=== PATIENT | female | born 1940 | race Two or more races ===

== ENCOUNTER 2019-01-28 01:25 | Emergency (ER) | payer MEDICARE, OTHER ==
[~2019-01-28] VITALS: Ht 167.6 cm; Wt 81.6 kg
--- NOTE | 2019-01-28 01:20 | NUR ---
ED Nurse Note: Patient brought in by ambulance with complaints of increased chronic pain of the left knee with radiation to the entire leg.
--- NOTE | 2019-01-28 01:29 | Emergency Room Report ---
History of Present Illness General Chief Complaint: Lower Extremity Injury Source: Patient Present Illness HPI This 78-year-old female with a history of degenerative disease, severe arthritis in her left knee that will need a knee replacement per her orthopedic doctor. She also get frequent cortisone injection and fluid aspiration. She presents with chief complaint of left knee pain. There is no trauma. She woke up with this pain. Pain is spasm and radiating upward and downward. Pain is 12 out of 10. Unable to ambulate. No nausea no vomiting. No fever chills. No swelling or redness. Unable to ablate so she called 911. Her Com[employer] which did not help. Allergies: Coded Allergies: SULFAMETHOXAZOLE (Verified Allergy, Unknown, 01/28/19) TRIMETHOPRIM (Verified Allergy, Unknown, 01/28/19) Patient History Past Medical History: see triage record, old chart reviewed Past Surgical History: other Pertinent Family History: none Social History: Denies: smoking Now: No Immunizations: other Reviewed Nursing Documentation: PMH: Agreed; PSxH: Agreed Nursing Documentation-PMH Hx Cardiac Problems: Yes - fybromyalgia Review of Systems Eye: Denies: eye pain, blurred vision ENT: Denies: ear pain, nose congestion, throat swelling Respiratory: Denies: cough, shortness of breath Cardiovascular: Denies: chest pain, palpitations Gastrointestinal: Denies: abdominal pain, diarrhea, nausea, vomiting Musculoskeletal: Reports: joint pain; Denies: back pain Skin: Denies: rash Neurological: Denies: headache, numbness Endocrine: Denies: increased thirst, increased urine Hematologic/Lymphatic: Denies: easy bruising All Other Systems: negative except mentioned in HPI Physical Exam Vital Signs Date Time Temp Pulse Resp B/P (MAP) Pulse Ox O2 Delivery O2 Flow Rate FiO2 01/28/19 00:59 98.2 20 118/57 (77) Nasal Cannula Vitals normal Sp02 EP Interpretation: reviewed, normal General Appearance: well appearing, no apparent distress, alert, obese Head: normocephalic, atraumatic Eyes: bilateral eye PERRL, bilateral eye EOMI ENT: hearing grossly normal, normal pharynx Neck: full range of motion, supple, no meningismus Respiratory: chest non-tender, lungs clear, normal breath sounds Cardiovascular #1: regular rate, rhythm, no murmur Gastrointestinal: normal bowel sounds, non tender, no mass, no organomegaly, no bruit, non-distended Musculoskeletal: back normal, other - Left knee: Mild effusion and diffuse tenderness. No redness or deformity. Psychiatric: mood/affect normal Medical Decision Making Diagnostic Impression: Primary Impression: Knee pain, left Qualified Codes: M25.562 - Pain in left knee ER Course This patient presents with left knee and left lower extremity pain. No trauma. No evidence of DVT. No septic joint. Will discharge home. CT/MRI/US Diagnostic Results CT/MRI/US Diagnostic Results : Imaging Test Ordered: Left lower extremity ultrasound Impression Negative for DVT per radiologist Last Vital Signs Date Time Temp Pulse Resp B/P (MAP) Pulse Ox O2 Delivery O2 Flow Rate FiO2 01/28/19 00:59 98.2 20 118/57 (77) Nasal Cannula Status: improved Disposition: HOME, SELF-CARE Condition: Stable Scripts Diazepam* (VALIUM*) 5 Mg Tablet 5 MG ORAL TID PRN for spasm, #15 TAB 0 Refills Prov: Aden Newberry MD 01/28/19 Prednisone* (PREDNISONE*) 20 Mg Tablet 40 MG ORAL DAILY, #10 TAB Prov: Aden Newberry MD 01/28/19 Additional Instructions: Follow-up with your Dr. in 7 days. Return if symptoms worsen. Aden Newberry MD Jan 28, 2019 01:29
[2019-01-28] MEDS ORDERED: HYDROmorphone 1mg/ml Carpuject IVP ONE ×2 (01:30→02:30)
--- NOTE | 2019-01-28 01:40 | NUR ---
ED Nurse Note: Patient tolerated IV start and medication administration well. Will continue to monitor.
[2019-01-28] MEDS ORDERED: Ketorolac 30mg Inj IV ONE (02:30)
--- NOTE | 2019-01-28 02:40 | NUR ---
ED Nurse Note: Patient reports no change in pain, ERMD consulted.
[2019-01-28] MEDS ORDERED: LORazepam Inj 2mg/ml 1ml IV ONE (03:45)
[2019-01-28] MEDS ORDERED: Morphine Sulfate 4mg/ml Inj (IV USE ONLY) IVP ONE (03:45)
[2019-01-28] MEDS ORDERED: Solu-MEDROL 125mg Inj IVP ONE (03:45)
--- NOTE | 2019-01-28 04:11 | NUR ---
ED Nurse Note: Patient provided with third round of pain management support, tolerated well, now resting comfortably, with no s/s of acute pain or discomfort. Patient has even chest rise and vital signs are stable except for saturation of 80%, oxygen provided via nasal cannula, 2L, and documented, ERMD to be informed. O2 sat recovery to 94% and sinus tachycardia resolved from 107 to 98.
--- NOTE | 2019-01-28 04:16 | Diagnostic Imaging Report ---
EXAM: US Duplex Left Lower Extremity Veins CLINICAL HISTORY: PAIN TECHNIQUE: Real-time duplex ultrasound scan of the left lower extremity veins integrating B-mode two-dimensional vascular structure, Doppler spectral analysis, color flow Doppler imaging and compression. COMPARISON: none FINDINGS: Deep veins: Unremarkable. No DVT in the visualized common femoral, femoral, proximal deep femoral or popliteal veins. The veins demonstrate normal color flow, are normally compressible, with normal phasic flow and or augmentation response. Superficial veins: Unremarkable. No thrombus in the visualized great saphenous vein. Soft tissues: No acute findings. No popliteal cyst. IMPRESSION: Normal left lower extremity duplex venous ultrasound.
[2019-01-28] MEDS ORDERED: PREDNISONE20 MG ORAL (04:20)
[2019-01-28] MEDS ORDERED: VALIUM5 MG ORAL (04:20)
[2019-01-28 04:21] VITALS: BP 107/63
[2019-01-28 04:22] VITALS: BP 118/57
--- NOTE | 2019-01-28 06:01 | NUR ---
Caregiver Tiffanie called, she is on her way to take patient home.
--- NOTE | 2019-01-28 06:09 | NUR ---
ED Nurse Note: Patient spoke with caregiver for lemon picker, Patient verbalized understanding of discharge instructions. ID band removed, IV removed. Patient waiting in room for caregiver arrival.
--- NOTE | 2019-01-28 06:45 | NUR ---
ED Nurse Note: Danae departed with all belongings, accompanied by Sebastian tovar to the car via a wheelchair for comfort. PAtient is A&Ox4, and has no complaints upon discharge.
[2019-01-28 06:46] VITALS: BP 118/57
== END 2019-01-28 06:48 | disposition home or self-care (01) ==
LOC: EDBD 01:25 → EMR 01:50
DX: M25.562 Pain in left knee (principal); M17.12 Unilateral primary osteoarthritis, left knee; Z88.2 Allergy status to sulfonamides; Z88.8 Allergy status to other drugs, medicaments and biological substances; M79.7 Fibromyalgia; E66.9 Obesity, unspecified; Z68.29 Body mass index [BMI] 29.0-29.9, adult
CPT/HCPCS: 93971; 96374; 96375; 96376; 99284; J1170; J1885; J2270; J2405; J2930